=== PATIENT | female | born 1995 | race Caucasian/White ===

== ENCOUNTER 2016-07-11 09:47 | Emergency (ER) | payer OTHER ==
[2016-07-11 10:05] VITALS: BP 112/61; PULSE 65; RESP 16; TEMP 97.3; O2SAT 99
[2016-07-11] MEDS ORDERED: LIDOCAINE 2% JELLY 5 ML TUBE ONE (10:36)
--- NOTE | 2016-07-11 10:57 | UCPHY ---
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 She reports mild skin pain. ROS: No deep bony pain. No numbness or tingling. No other injuries. 5 point ROS is otherwise negative. Past Medical/Surgical History: Immunizations up-to-date. Otherwise healthy. Smoking Status: Never smoked Physical Exam: Physical Exam Vital signs are normal. General: No acute distress HEENT: Atraumatic. Eyes: Pupils equal and react to light. Extraocular motions are intact. Lungs: No respiratory distress. Cardiac: Brisk capillary refill is intact throughout. Pulses are 2+ and symmetric in the affected extremity. Skin: No rash or pallor. Patient has a superficial abrasion partial-thickness laceration 1 cm in length consistent with dog bite to the right forearm with no bleeding. No foreign bodies. There is no underlying bony tenderness. No surrounding erythema. No fluctuance. No warmth to touch. Neuro: Alert and oriented x3 with no sensorimotor deficits. Constitutional: Initial Vital Signs Temperature (C) 36.3 C 07/11/16 10:02 Heart Rate 65 07/11/16 10:02 Respiratory Rate 16 07/11/16 10:02 Blood Pressure 112/61 07/11/16 10:02 O2 Sat (%) 99 07/11/16 10:02 O2 Delivery Mode Room Air Allergies/Adverse Reactions: No Known Allergies Allergy (Unverified 07/11/16 10:02) Home Medications: Medication Instructions Recorded Amox Tr/K Clav (Augmentin) 500 mg PO TID #21 tab 07/11/16 [Augmentin 500/125 MG TAB (*)] Bcp 07/11/16 MDM/Departure - MDM ED Course/Re-evaluation: Lighted gel applied. Wound is clean by our tech. I counseled regarding dog bites. - Depart Disposition: Home, Routine, Self-Care Clinical Impression: Dog bite Qualifiers: Encounter type: initial encounter Qualifier Code: (W54.0XXA) Bitten by dog, initial encounter Condition: Good Instructions: Animal Bite (ED) Additional Instructions: Diagnosis: Dog bite of arm Plan: Clean daily with warm soapy water If you develop redness, then take the Augmentin antibiotic. If you have any questions or concerns return for recheck. Ibuprofen and Tylenol for pain as needed Prescriptions: Amox Tr/K Clav (Augmentin) [Augmentin 500/125 MG TAB (*)] 500 mg PO TID #21 tab - PQRS PQRS Measurement: NA
== END 2016-07-11 11:14 | disposition home or self-care (01) ==
LOC: CED 09:47
DX: S51.851A Open bite of right forearm, initial encounter (principal); W54.0XXA Bitten by dog, initial encounter
CPT/HCPCS: G0463-PO